=== PATIENT | male | born 1995 | race Caucasian/White ===

== ENCOUNTER 2016-11-27 20:00 | Emergency (ER) | payer BC, OTHER ==
[2016-11-27] MEDS ORDERED: ACETAMINOPHEN 500 MG TAB PO ONE (20:53)
[2016-11-27] MEDS ORDERED: IBUPROFEN 600 MG TAB PO ONE (20:53)
[2016-11-27 20:55] VITALS: RESP 16
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
[2016-11-27 22:48] VITALS: O2SAT 97
[2016-11-27 22:49] VITALS: BP 113/67; PULSE 73; TEMP 98.6
== END 2016-11-27 22:48 | disposition home or self-care (01) ==
DX: J11.1 Influenza due to unidentified influenza virus with other respiratory manifestations (principal)

== ENCOUNTER 2018-04-23 21:21 | Emergency (ER) | payer BC ==
--- NOTE | 2018-04-23 22:41 | EDPHY ---
General Time Seen by Provider: 04/23/18 21:30 Narrative: CLINICAL IMPRESSION: Chin laceration ASSESSMENT/PLAN: 23-year-old male presents to the emergency department with an acute chin laceration sustained when he tripped going up some steps. No reproducible mandibular pain, midline neck pain, maxillofacial pain, and no dental injury or intraoral laceration. Tetanus up-to-date. Wound repaired as per chart notes. Patient tolerated procedure well. Wound care discussed, signs and symptoms of infection reviewed, warning signs return to ED sooner alignment discharge. DIFFERENTIAL DIAGNOSIS: includes but not limited to laceration of tendon or vascular structure, underlying fracture, laceration with retained FB ED PROCECURES: Laceration Repair Verbal consent obtained by patient. Risks discussed, including but not limited to infection, pain, retained foreign body, need for additional repair, poor cosmetic result, tendon damage, nerve damage, poor wound healing, vascular damage. Alternatives to repair discussed. Caspar protocol used to establish correct patient, procedure, equipment, software support representative, and site. Anesthesia obtained by local infiltration. Anesthetized with 2% lidocaine with epinephrine. Laceration location chin, length 1.5 cm, depth 3 mm, Repair type simple. Patient was prepped and draped in usual sterile fashion. Hemostasis achieved with direct pressure. Wound explored through full range of motion and entire depth of wound probed and visualized with gloved finger. No suspicion for nerve damage, tendon damage, underlying fracture, vascular damage, foreign body, or contamination. Area was cleansed with Shur-Clens and irrigated with sterile saline as per protocol. No foreign body or material removed. Repair method 6 0 Prolene sutures, simple interrupted. Seven sutures placed. Well aligned, closely approximated. wound was dressed with bacitracin and Band- Aid. Patient tolerated well with no immediate complications. Wound care: Clean and dry x 24 hours, gently clean with soap and water, cover with topical antibiotic ointment/bandage. Suture/Staple removal: 5-7 Days CHIEF COMPLAINT: Laceration HPI: 23-year-old male presents to the emergency department after he tripped up some stairs landing on his chin. He did not lose consciousness. He reports no jaw pain, ear pain, loss of hearing, bleeding from the ears, neck pain, numbness to the arms or hands or fingers. Tetanus up-to-date. No intraoral injury or dental injury. No other injuries PAST MEDICAL HISTORY: None reported Pertinent Past Surgical History: Prior clavicle surgery Social History: Otherwise healthy REVIEW OF SYSTEMS: All other systems negative Constitutional: No fever, no chills Musculoskeletal: No deformity, no joint pain Skin: Chin laceration Neurological: No sensory loss or weakness, 2 point discrimination intact. PHYSICAL EXAM: General Appearance: Alert, oriented, appropriate for age, intoxicated, cooperative, NAD, well hydrated, non-toxic appearing, VSS, no hypoxia. Neurological: Alert and oriented x 3 Skin: 1.5 cm laceration to the chin Musculoskeletal: No reproducible midline neck pain, full range of motion of the neck. No reproducible maxillofacial or mandibular pain. MEDICAL DECISION MAKING: Patient was seen independently. Secondary supervising physician at time of evaluation was Dr. Gil . Diagnosis: Chin laceration. New, requires workup Summary: See assessment and plan for summary of ED visit Patient Progress improved, stable for discharge. - History Smoking Status: Never smoked - Objective Vital Signs: Initial Vital Signs Temperature (C) 37.3 C 04/23/18 21:24 Heart Rate 118 H 04/23/18 21:24 Respiratory Rate 18 04/23/18 21:24 Blood Pressure 144/96 H 04/23/18 21:24 O2 Sat (%) 96 04/23/18 21:24 O2 Delivery Mode Room Air Allergies/Adverse Reactions: No Known Allergies Allergy (Unverified 04/23/18 21:27) Home Medications: Medication Instructions Recorded NK [No Known Home Meds] 04/23/18 Departure - Departure Disposition: Home, Routine, Self-Care Clinical Impression: Chin laceration Condition: Good Instructions: Laceration (ED) Additional Instructions: DISCHARGE INSTRUCTIONS FROM YOUR DOCTOR Thank you for visiting our emergency department today. You were treated by a physician costumer assistant today and your case was reviewed with our ED Attending physician. Please keep in mind that discharge from the emergency department does not mean that there is nothing wrong - it simply means that we have not identified an emergency condition that requires further evaluation or treatment in the hospital. You should always plan to follow up with primary care for re- evaluation of your condition in the next 2-3 days. If you have been referred to a specialist, please call as soon as possible (today or tomorrow) to schedule your follow up appointment at the appropriate time. PLEASE HAVE SUTURES/DONG REMOVED IN 5-7 DAYS. YOU CAN RETURN TO THE EMERGENCY DEPARTMENT OR YOUR PRIMARY CARE FOR SUTURE/STAPLE REMOVAL. AVOID SUBMERGING SUTURES/DONG UNDERWATER FOR PROLONGED PERIOD OF TIME UNTIL REMOVED. KEEP WOUND CLEAN AND DRY, COVER WITH ANTIBIOTIC OINTMENT AND BAND-AID. RETURN TO EMERGENCY DEPARTMENT FOR REDNESS, SWELLING, DISCHARGE, WARMTH TO THE SKIN, OR ANY OTHER CONCERNS FOR INFECTION. People present with illnesses and injuries in different ways, and it is always possible that we have missed something. You may always return for re-evaluation if symptoms worsen or if they are not improving or if you develop new/different symptoms. Again, thank you for choosing our emergency department. We hope that you feel better. Referrals: NONE *PRIMARY CARE P,. [Primary Care Provider] - As per Instructions Fina Morelos MD [Medical Doctor] - 5-7 days, call for appt.
[2018-04-23 22:48] VITALS: BP 140/84
== END 2018-04-23 22:57 | disposition home or self-care (01) ==
PROC: 0HQ1XZZ Repair Face Skin, External Approach (ICD-10-PCS; principal; 2018-04-23)
DX: S01.81XA Laceration without foreign body of other part of head, initial encounter (principal); W10.8XXA Fall (on) (from) other stairs and steps, initial encounter